=== PATIENT | male | born 1960 | race African-American/Black ===

== ENCOUNTER 2016-06-21 10:53 | Emergency (ER) | payer OTHER ==
[2016-06-21] MEDS ORDERED: LASIX IV ONE (11:48)
--- NOTE | 2016-06-21 11:51 | PROVIDER DOCUMENTATION ---
HPI-General Adult - General Chief Complaint: Edema Stated Complaint: EDEMA/LEGS Time Seen by Provider: 06/21/16 11:22 Source: patient Allergies/Adverse Reactions: Patient Allergies Allergy/AdvReac Type Severity Reaction Status Date / Time No Known Allergies Allergy Verified 06/21/16 12:41 Home Medications: Home Medication List Medication Instructions Recorded Confirmed Last Taken Type Gabapentin 3 tab PO QHS 05/03/15 06/05/16 06/05/16 History Insulin Aspart [Novolog Flexpen] 20 units SQ DIRECTED 05/03/15 06/05/1606/05 History Insulin Glargine,Hum.rec.anlog 60 units SQ QAM 05/03/15 06/05/16 06/05/16 History [Lantus Solostar] Albuterol Sulfate [Ventolin Hfa] 2 puff IH BID 10/21/15 06/05/16 06/05/16 History Latanoprost 0.005% Oph Soln 1 drop BOTH EYES BID 10/21/15 06/05/16 06/05/16 History [Xalatan 0.005% Oph Soln] Timolol 0.5% Oph Solution 1 drop OPH BID 10/21/15 06/05/16 06/05/16 History [Timoptic 0.5% Oph Solution] Carvedilol 25 mg PO BID 10/27/15 06/05/16 06/05/16 History Furosemide [Lasix] 40 mg PO DAILY #14 tablet 02/26/16 06/05/16 06/05/16 Rx Diclofenac Na D.r. [Voltaren] 50 mg PO BID #30 tab 03/12/16 06/05/16 06/05/16 Rx Budesonide/Formoterol Fumarate 10.2 gm IH DAILY 05/08/16 06/05/16 06/05/16 History [Symbicort 160-4.5 Mcg Inhaler] Sulfamethoxazole/Trimethoprim 1 each PO BID #20 tablet 05/08/16 06/05/16 Rx [Bactrim Ds Tablet] Cyclobenzaprine [Flexeril] 10 mg PO TID #20 tablet 05/17/16 06/05/16 06/05/16 Rx Doxycycline 100 mg PO BID #14 tablet 06/05/16 Unknown Rx Prednisone 20 mg PO BID #10 tablet 06/05/16 Unknown Rx - History of Present Illness -Gen Adult Nature of Presenting Problems: Reports to er with cc of LE edema since last night. Reports hx of copd,cmg,chf and takes daily breathing tx. Denies sob,n,v,cp. Takes lasix 20mg twice a day. Appt with pcp tomorrow. Location of Pain/Injury: reports: lower extremity Quality of Pain: reports: aching Severity: reports: mild Onset/Duration: reports: last night Timing: reports: still present Similar Symptoms Previously?: No Recently seen or treated by another doctor?: No Review of Systems - Adult - REVIEW OF SYSTEMS - ADULT Constitutional: denies: chills, fever, fatique Eyes: reports: no symptoms reported Ears, Nose, Mouth & Throat: reports: no symptoms reported Cardiovascular: reports: edema. denies: chest pain, irregular heart rate, orthopnea, syncope Respiratory: denies: cough, shortness of breath, wheezing Gastrointestinal: reports: no symptoms reported Genitourinary: reports: no symptoms reported Musculoskeletal: reports: other (edema). denies: bone pain, frequent leg cramps , joint pain, joint swelling Integumentary: reports: no symptoms reported Neurological: reports: no symptoms reported Psychiatric: reports: no symptoms reported Endocrine: reports: no symptoms reported Hematologic/Lymphatic: reports: no symptoms reported Allergic/Immunologic: reports: no symptoms reported All Other Systems: Reviewed and Negative Past History - Adult - PAST MEDICAL HISTORY-ADULT Review of Records: reports: Nursing Assessment Review, Medications Reviewed Major Childhood Illnesses: reports: denies history Cardiovascular: reports: HTN, hyperlipidemia Respiratory: reports: asthma, COPD, sleep apnea Gastrointestinal: reports: GERD Obstetrical/Gynecological: reports: denies history Genitourinary: reports: denies history Musculoskeletal: reports: arthritis, chronic pain (back and shoulder), neck/ back injury Neurological: reports: degenerative disease Psychiatric: reports: anxiety, depression Endocrine/Immune: reports: Diabetes Other Conditions: reports: cataract/glaucoma Additional History: frequent ER visits - PRIOR SURGERIES/PROCEDURES Surgical/Procedure History: reports: back/neck, other (cataract removal) - PRIOR HOSPITALIZATIONS Prior Hospitalizations: reports: for other non-related - IMMUNIZATION STATUS Childhood Immunizations: See Nurse Assessment Flu Vaccine: See Nurse Assessment - FAMILY HISTORY Family History: reviewed, not pertinent - SOCIAL HISTORY Smoking: other (dips) Provider spent 3-5 mins advising pt. on dangers of tobacco.: Discussed manners to quit use, and f/u contacts for add'l counseling. Substance Use: none/never Physical Exam-General - PHYSICAL EXAM-ADULT Initial Vital Signs Reviewed: Yes - CONSTITUTIONAL General Appearance: appears well, alert, no apparent distress - EYES Eyes: PERRL/EOMI, pink conjunctivae - HEAD, EARS, NOSE, MOUTH & THROAT HENMT: moist mucous membranes, TMs normal, pharynx normal - NECK Neck: non-tender, full range of motion, supple, normal inspection - RESPIRATORY Respiratory: chest non-tender, lungs clear, normal breath sounds, no pleuratic chest pain, no respiratory distress, no accessory muscle use - CARDIOVASCULAR Cardiovascular: regular rate, rhythm - GASTROINTESTINAL (ABDOMEN) Abdominal Exam: non tender, soft, no organomegaly, no pulsatile mass - MUSCULOSKELETAL Extremity: normal range of motion, normal gait, pedal edema (4+ pitting edema) - SKIN Integumentary: normal color, normal turgor, warm/dry - 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, grossly normal, no motor/sensory deficits - PSYCHIATRIC Psych/Mental Status: normal mood/affect, normal thought content, normal thought process, oriented x 3 Progress - PLAN OF CARE/RESULTS Progress/Plan/Lab Results: Orders Category Date Time Status Cardiac Monitoring DIRECTED Care 06/21/16 11:48 Active Saline Loc NOW Care 06/21/16 11:48 Active CHEST-PORTABLE [RAD] Stat Exams 06/21/16 11:48 Ordered CBC WITH ELECTRONIC DIFF [HEME] Stat Lab 06/21/16 11:48 Uncollected CK PROFILE [SP CHEM] Stat Lab 06/21/16 11:48 Uncollected COMPREHENSIVE METABOLIC PANEL [CHEM] Stat Lab 06/21/16 11:48 Uncollected D-DIMER [CHEM] Stat Lab 06/21/16 11:48 Uncollected MAGNESIUM [CHEM] Stat Lab 06/21/16 11:48 Uncollected PRO B-NATRIURETIC PEPTIDE Stat Lab 06/21/16 11:48 Uncollected PROTIME WITH INR [COAG] Stat Lab 06/21/16 11:48 Uncollected PTT [COAG] Stat Lab 06/21/16 11:48 Uncollected TROPONIN T Stat Lab 06/21/16 11:48 Uncollected Furosemide [Lasix] Med 06/21/16 11:48 Discontinued 100 mg IV NOW ONE EKG [EKG] Stat Ther 06/21/16 11:48 Ordered Vital Signs - 24 hr 06/21/16 11:00 Temperature 98.1 F Pulse Rate 93 H Respiratory 20 Rate Blood Pressure 153/102 O2 Sat by Pulse 100 Oximetry - REASSESSMENT Reassessment #1 Time Reassessed: 13:59 (Reports has urinated 5 times feels better and is ready to go. Has been instructed to take medications like instructed and to follow up with pcp) - XRAY 1 XRAY: Bilateral XRAY Study: Chest Impression: Abnormal (low lung volume but no acute disease) Departure - Departure Time of Disposition Order: 14:00 DIAGNOSIS: Fluid retention in legs Qualifiers: Laterality: bilateral Qualified Code(s): R60.0 - Localized edema Disposition: HOME 01 Certified Medical Emergency: Emergent Condition: Stable Additional Instructions: Follow up with pcp. Take medications as instructed ED Follow Up Instructions: You have been treated by a care provider in the Emergency Department. These instructions are being provided to you so you can have an understanding of how to care for yourself upon discharge. Upon discharge from the Emergency Department, you are responsible for making arrangements for follow-up care by a physician of your choice. Take all prescribed medications as directed. Return to the Emergency Department immediately for any new or worsening symptoms. You may call the Physician Referral phone number at [phone] to obtain a list of Physicians who are taking new patients. Attestation - Scribe Verification/Attestation Scribe:: Rama Gagnon Acting as Scribe for:: Mariana Suh Scribe documention review:: This chart was documented by a scribe and accurately reflects the service the provider performed and the decisions made by the provider. Physician Attestation - Physician Attestation I, the provider, attest to the following statement:: Mariana Suh Physician documentation Attestation:: This documentation recorded by the scribe accurately reflects the service I personally performed and the decisions made by me.
[2016-06-21 12:32] LABS: MANUAL DIFF NEEDED? NO
[2016-06-21 12:40] LABS: BASO% 0.2 % (0.0-0.8); EOS# 0.04 X1000 (0.0-0.7); EOS% 0.8 % (0.0-10.0); HEMATOCRIT 40.1 % (42.0-52.0); HEMOGLOBIN 12.7 g/dL (14.0-18.0); IMM GRAN# 0.04 X1000 (0.0-0.04); IMM GRAN% 0.8 % (0.0-0.5); LYMPH# 1.19 X1000 (1.2-3.4); LYMPH% 22.6 % (20.5-51.1); MCH 25.7 PG (27-31); MCHC 31.7 g/dL (33-37); MONO# 0.43 X1000 (0.11-0.59); MONO% 8.2 % (1.7-9.3); MPV 11.7 FL (7.4-10.4); NEUT% 67.4 % (42.2-75.2); PLT 156 X1000 (130-400); RBC 4.95 XMIL (4.7-6.1)
--- NOTE | 2016-06-21 12:55 | Diag Imaging Result Document ---
PROCEDURE NAME: CHEST-PORTABLE - 06/21/2016 PORTABLE CHEST X-RAY: COMPARISON: 06/05/2016. FINDINGS: FINDINGS: Lung volumes are somewhat low. No focal infiltrates. Heart size is normal. IMPRESSION: Low lung volumes but no acute disease.
[2016-06-21 13:02] LABS: INR 0.91; PROTIME 9.3 Seconds (9.2-11.7); PTT 22.1 Seconds (22.0-36.0)
[2016-06-21 13:31] LABS: AGAP 12; ALBUMIN 3.8 g/dL (3.5-5.0); ALKALINE PHOSPHATASE 133 U/L (32-122); BUN 24 mg/dL (8-22); CALCIUM 8.6 mg/dL (8.8-10.2); CHLORIDE 96 mmol/L (98-107); CK PROFILE 665 U/L (24-204); COSMO 287; GOT 25 U/L (10-34); GPT 62 U/L (10-44); MAGNESIUM 2.1 mg/dL (1.5-2.7); POTASSIUM 4.9 mmol/L (3.5-5.1); SODIUM 133 mmol/L (136-145); TCO2 25 mmol/L (25-35); TOTAL BILIRUBIN 0.14 mg/dL (0.20-1.00); TOTAL PROTEIN 6.4 g/dL (6.3-8.3)
[2016-06-21 14:24] LABS: CK INDEX 1.9 (0.0-2.5); CK-MB 12.82 ng/mL (0.0-5.0)
[2016-06-21 14:50] VITALS: BP 153/90
== END 2016-06-21 14:49 | disposition home or self-care (01) ==
LOC: ED 10:53
DX: R60.0 Localized edema (principal); M79.605 Pain in left leg; I10 Essential (primary) hypertension; E78.5 Hyperlipidemia, unspecified; J44.9 Chronic obstructive pulmonary disease, unspecified; M54.9 Dorsalgia, unspecified; M25.519 Pain in unspecified shoulder; G89.29 Other chronic pain; Z79.899 Other long term (current) drug therapy; E11.9 Type 2 diabetes mellitus without complications; M19.90 Unspecified osteoarthritis, unspecified site; F17.220 Nicotine dependence, chewing tobacco, uncomplicated; Z71.6 Tobacco abuse counseling; Z79.4 Long term (current) use of insulin; Z79.52 Long term (current) use of systemic steroids; Z79.51 Long term (current) use of inhaled steroids
CPT/HCPCS: 71010; 80053; 82550; 82553; 83735; 83880; 84484; 85025; 85379; 85610; 85730; J1940